=== PATIENT | female | born 1940 | race Caucasian/White ===

== ENCOUNTER 2016-07-27 11:39 | Emergency (ER) | payer OTHER ==
[~2016-07-27] VITALS: Ht 152.4 cm; Wt 99.3 kg
[2016-07-27 11:49] VITALS: BP 159/75; PULSE 118; RESP 18; TEMP 99; O2SAT 92
[2016-07-27] MEDS ORDERED: GLIP10TA6 PO (12:23)
[2016-07-27] MEDS ORDERED: B-COTAB41 PO (12:23)
[2016-07-27] MEDS ORDERED: FAMO20TA2 PO (12:23)
[2016-07-27] MEDS ORDERED: METH2.5T PO (12:23)
[2016-07-27] MEDS ORDERED: FOLI400T PO (12:23)
[2016-07-27] MEDS ORDERED: LEVO.125 PO (12:23)
[2016-07-27] MEDS ORDERED: LISI10TA3 PO (12:23)
[2016-07-27] MEDS ORDERED: SITA1TAB2 PO (12:23)
[2016-07-27] MEDS ORDERED: MULT1TAB84 PO (12:23)
[2016-07-27] MEDS ORDERED: PRED2.5T PO (12:23)
[2016-07-27] MEDS ORDERED: CALC1CAP11 PO (12:23)
[2016-07-27] MEDS ORDERED: HYDR12.57 PO (12:23)
[2016-07-27] MEDS ORDERED: FLUV1TAB3 PO (12:23)
[2016-07-27] MEDS ORDERED: CHOL5000 PO (12:23)
[2016-07-27] MEDS ORDERED: LEVA500T PO (12:46)
[2016-07-27] MEDS ORDERED: CHERSYP2 PO (12:46)
[2016-07-27] MEDS ORDERED: PRED10PA PO (12:46)
--- NOTE | 2016-07-27 12:47 | PD ---
HPI Chief Complaint: Cold / Flu Symptoms Time Seen by Provider: 12:27 Travel History International Travel<30 days: No Contact w/Intl Traveler<30days: No Traveled to known affect area: No History of Present Illness HPI Patient presents with complaints of sinus pain and pressure with postnasal drip and cough. Denies nausea vomiting diarrhea fever. She is taking Claritin daily. States symptoms started approximately 2 months ago. She was evaluated a month ago and started on doxycycline and oral steroid without complete resolution of her symptoms. She states she did get better. Denies any new rashes. No tobacco exposure. No history of COPD. States her symptoms gradually gotten worse since she completed the antibiotics. PFSH Past Medical History Hx Anticoagulant Therapy: No Arthritis: Yes Cardiovascular Problems: Yes (HTN) High Cholesterol: Yes Diabetes: Yes Patient Takes Glucophage: Yes (JANUVIA) Hypertension: Yes Immunizations Current: Yes Thyroid Disease: Yes Tetanus Vaccination: Unknown Influenza Vaccination: No ?: Not Menopausal: Yes Past Surgical History Hysterectomy: No Joint Replacement: Yes (LEFT KNEE X 2, RIGHT KNEE X 1) Social History Alcohol Use: Yes (SOCIALLY) Tobacco Use: No (NEVER) Substance Use: No Allergies-Medications (Allergen,Severity, Reaction): Coded Allergies: No Known Allergies (Unverified , 07/27/16) Reported Meds & Prescriptions Reported Meds & Active Scripts Active Reported Famotidine 20 Mg Tab 20 Mg PO BID PRN Methotrexate 2.5 Mg Tab 4 Tab PO SUMO Prednisone 2.5 Mg Tab 2.5 Mg PO HS Hydrochlorothiazide 12.5 Mg Cap 12.5 Mg PO EVERY OTHER DAY Folic Acid 400 Mcg Tab 400 Mcg PO HS Fluvastatin ER (Fluvastatin Sodium) 80 Mg Javan 80 Mg PO HS Lisinopril 10 Mg Tab 10 Mg PO HS Multivitamin Adults (Multiple Vitamins W/ Minerals) 1 Tab 1 Tab PO HS Vitamin D3 (Cholecalciferol) 5,000 Unit Cap 5,000 Units PO AC LUNCH Calcium 250 Mg Cap 250 Mg PO AC LUNCH Vitamin B-Complex (B-Complex Vitamins) 1 Tab 1 Tab PO AC LUNCH Januvia (Sitagliptin Phosphate) 100 Mg Tab 100 Mg PO DAILY Glipizide 10 Mg Tab 10 Mg PO DAILY Take 30 minutes before a meal Synthroid (Levothyroxine Sodium) 125 Mcg Tab 125 Mcg PO DAILY Review of Systems General / Constitutional: No: Fever Eyes: No: Visual changes HENT: Positive: Sore Throat, Rhinorrhea, No: Headaches Cardiovascular: No: Chest Pain or Discomfort Respiratory: Positive: Cough, No: Shortness of Breath Gastrointestinal: No: Abdominal Pain Genitourinary: No: Dysuria Musculoskeletal: No: Pain Skin: No Rash Neurologic: No: Weakness Psychiatric: No: Depression Endocrine: No: Polydipsia Hematologic/Lymphatic: No: Easy Bruising Physical Exam Narrative GENERAL: Well-nourished, well-developed patient. SKIN: Warm and dry. HEAD: Normocephalic. EYES: No scleral icterus. No injection or drainage. Nares erythematous and boggy tenderness over bilateral maxillary sinuses Throat erythematous no adenopathy positive postnasal drip NECK: Supple, trachea midline. No JVD or lymphadenopathy. CARDIOVASCULAR: Regular rate and rhythm without murmurs, gallops, or rubs. RESPIRATORY: Breath sounds equal bilaterally. No accessory muscle use. GASTROINTESTINAL: Abdomen soft, non-tender, nondistended. MUSCULOSKELETAL: No cyanosis, or edema. BACK: Nontender without obvious deformity. No CVA tenderness. Data Data Last Documented VS Vital Signs Date Time Temp Pulse Resp B/P Pulse Ox O2 Delivery O2 Flow Rate FiO2 07/27/16 12:09 100 18 96 Room Air 07/27/16 11:49 99.0 159/75 MDM Medical Decision Making Medical Screen Exam Complete: Yes Emergency Medical Condition: Yes Differential Diagnosis Sinusitis, pharyngitis, viral syndrome allergies Narrative Course Assessment and plan discussed with patient and at bedside Diagnosis Primary Impression: Sinusitis Qualified Code: J32.0 - Chronic maxillary sinusitis Patient Instructions: General Instructions Additional Instructions: Encouraged to continue [id number] histamine without pseudoephedrine, encourage frequent handwashing, encourage vitamin C and zinc to boost immune system, encouraged regular nasal irrigation with a [facility] pot Med/Other Pt SpecificInfo: Prescription(s) given Scripts Prednisone (21) 10 mg tab Dose Pack 10 Mg Pack10 Mg PO DIRECTED #1 DSPK Ref 0 Prov:Javier Timmons MD 07/27/16 Guaifenesin-Codeine Liq (Cheratussin AC Liq)100-10 Mg/5 Ml Syrp10 Ml PO Q4H PRN (COUGH AND COLD SYMPTOMS) #120 ML Ref 0 Do not exceed 6 doses/24 hrs. Prov:Javier Timmons MD 07/27/16 Levofloxacin (Levaquin)500 Mg Vxf410 Mg PO DAILY #14 TAB Ref 0 Prov:Javier Timmons MD 07/27/16 Disposition: 01 DISCHARGE HOME Condition: Good Javier Timmons MD Jul 27, 2016 12:47
[2016-07-27 13:17] VITALS: BP 143/76
== END 2016-07-27 13:18 | disposition home or self-care (01) ==
LOC: PHED 11:39
DX: J32.0 Chronic maxillary sinusitis (principal); R05 Cough; I10 Essential (primary) hypertension; E78.00 Pure hypercholesterolemia, unspecified; E11.9 Type 2 diabetes mellitus without complications; E07.9 Disorder of thyroid, unspecified; Z79.84 Long term (current) use of oral hypoglycemic drugs; Z87.39 Personal history of other diseases of the musculoskeletal system and connective tissue
CPT/HCPCS: 99283

== ENCOUNTER 2016-09-17 10:26 | Emergency (ER) | payer OTHER ==
[~2016-09-17] VITALS: Ht 157.5 cm; Wt 99.0 kg
[~2016-09-17 10:26] MED LIST: B-COTAB41 PO; CALC1CAP11 PO; CHERSYP2 PO; CHOL5000 PO; FAMO20TA2 PO; FLUV1TAB3 PO; FOLI400T PO; GLIP10TA6 PO; HYDR12.57 PO; LEVA500T PO; LEVO.125 PO; LISI10TA3 PO; METH2.5T PO; MULT1TAB84 PO; PRED10PA PO; PRED2.5T PO; SITA1TAB2 PO
[2016-09-17 10:38] VITALS: BP 146/79; PULSE 79; RESP 16; TEMP 97.8; O2SAT 91
[2016-09-17] MEDS ORDERED: methylPREDNISolone SOD SUCC 125 MG/2 ML VIAL IVP ONE (11:00)
[2016-09-17] MEDS ORDERED: SODIUM CHLORIDE 0.9% FLUSH 5 ML FLUSH IVF PRN (11:00)
--- NOTE | 2016-09-17 11:00 | PD ---
HPI Chief Complaint: Cold / Flu Symptoms Time Seen by Provider: 10:48 Travel History International Travel<30 days: No Contact w/Intl Traveler<30days: No Traveled to known affect area: No History of Present Illness HPI This is a 75-year-old female with a history of arthritis on methotrexate and chronic prednisone who presents to the emergency department with 3 days of increasing cough productive with clear sputum, constant, worse in the evenings, worse with exertion. She has a history of recurrent sinusitis. She had very similar symptoms in July at which time she was started on a prednisone taper and antibiotics and her symptoms improved. At that time she also started Claritin for possible allergies and she says that she thinks that is helped her. She says she's never smoked. She says she had an echo of her heart to evaluate a heart murmur prior to coming to [place] last year which was normal. PFSH Past Medical History Hx Anticoagulant Therapy: No Arthritis: Yes Cardiovascular Problems: Yes (HTN) High Cholesterol: Yes Diabetes: Yes Patient Takes Glucophage: No Hypertension: Yes Immunizations Current: Yes Thyroid Disease: Yes Menopausal: Yes Past Surgical History Hysterectomy: No Joint Replacement: Yes (LEFT KNEE X 2, RIGHT KNEE X 1) Social History Alcohol Use: Yes (SOCIALLY) Tobacco Use: No (NEVER) Substance Use: No Allergies-Medications (Allergen,Severity, Reaction): Coded Allergies: No Known Allergies (Unverified , 09/17/16) Reported Meds & Prescriptions Reported Meds & Active Scripts Active Prednisone (21) 10 mg tab Dose Pack (Prednisone) 10 Mg Pack 10 Mg PO DIRECTED Cheratussin AC Liq (Guaifenesin-Codeine Liq) 100-10 Mg/5 Ml Syrp 10 Ml PO Q4H PRN Do not exceed 6 doses/24 hrs. Levaquin (Levofloxacin) 500 Mg Tab 500 Mg PO DAILY Reported Famotidine 20 Mg Tab 20 Mg PO BID PRN Methotrexate 2.5 Mg Tab 4 Tab PO SUMO Prednisone 2.5 Mg Tab 2.5 Mg PO HS Hydrochlorothiazide 12.5 Mg Cap 12.5 Mg PO EVERY OTHER DAY Folic Acid 400 Mcg Tab 400 Mcg PO HS Fluvastatin ER (Fluvastatin Sodium) 80 Mg Javan 80 Mg PO HS Lisinopril 10 Mg Tab 10 Mg PO HS Multivitamin Adults (Multiple Vitamins W/ Minerals) 1 Tab 1 Tab PO HS Vitamin D3 (Cholecalciferol) 5,000 Unit Cap 5,000 Units PO AC LUNCH Calcium 250 Mg Cap 250 Mg PO AC LUNCH Vitamin B-Complex (B-Complex Vitamins) 1 Tab 1 Tab PO AC LUNCH Januvia (Sitagliptin Phosphate) 100 Mg Tab 100 Mg PO DAILY Glipizide 10 Mg Tab 10 Mg PO DAILY Take 30 minutes before a meal Synthroid (Levothyroxine Sodium) 125 Mcg Tab 125 Mcg PO DAILY Review of Systems Except as stated in HPI: all other systems reviewed are Neg Physical Exam Narrative GENERAL:Well appearing, no acute distress SKIN: Warm and dry. HEAD: Atraumatic. Normocephalic. EYES: Pupils equal and round. No injection or drainage. ENT: Moist mucous membranes NECK: Trachea midline. CARDIOVASCULAR: Regular rate and rhythm. 3/6 systolic murmur over the right upper sternal border. 1+ pitting edema in the bilateral lower extremities. RESPIRATORY: Clear to auscultation. Breath sounds equal bilaterally. Expiratory wheeze with coughing. GASTROINTESTINAL: Abdomen soft, non-tender, nondistended. MUSCULOSKELETAL: No obvious deformities. NEUROLOGICAL: Awake and alert. No obvious cranial nerve deficits. Moving all extremities. PSYCHIATRIC: Appropriate mood and affect; insight and judgment normal. Data Data Last Documented VS Vital Signs Date Time Temp Pulse Resp B/P Pulse Ox O2 Delivery O2 Flow Rate FiO2 09/17/16 11:17 100 Aerosol Mask 09/17/16 10:38 97.8 79 16 146/79 Orders Complete Blood Count With Diff (09/17/16 10:58) Comprehensive Metabolic Panel (09/17/16 10:58) Chest, Single Ap (09/17/16 10:58) Ecg Monitoring (09/17/16 10:58) Iv Access Insert/Monitor (09/17/16 10:58) Oximetry (09/17/16 10:58) Oxygen Administration (09/17/16 10:58) Methylprednisolone So Succ Inj (Solumedr (09/17/16 11:00) Albuterol-Ipratropium Neb (Duoneb Neb) (09/17/16 11:00) Sodium Chloride 0.9% Flush (Ns Flush) (09/17/16 11:00) B-Type Natriuretic Peptide (09/17/16 10:58) Labs Laboratory Tests Test 09/17/16 11:12 White Blood Count 7.5 TH/MM3 Red Blood Count 3.49 MIL/MM3 Hemoglobin 11.9 GM/DL Hematocrit 35.7 % Mean Corpuscular Volume 102.5 FL Mean Corpuscular Hemoglobin 34.0 PG Mean Corpuscular Hemoglobin 33.2 % Concent Red Cell Distribution Width 15.3 % Platelet Count 212 TH/MM3 Mean Platelet Volume 8.0 FL Neutrophils (%) (Auto) 73.0 % Lymphocytes (%) (Auto) 14.1 % Monocytes (%) (Auto) 6.7 % Eosinophils (%) (Auto) 5.5 % Basophils (%) (Auto) 0.7 % Neutrophils # (Auto) 5.4 TH/MM3 Lymphocytes # (Auto) 1.1 TH/MM3 Monocytes # (Auto) 0.5 TH/MM3 Eosinophils # (Auto) 0.4 TH/MM3 Basophils # (Auto) 0.1 TH/MM3 CBC Comment DIFF FINAL Differential Comment Sodium Level 140 MEQ/L Potassium Level 4.3 MEQ/L Chloride Level 100 MEQ/L Carbon Dioxide Level 30.9 MEQ/L Anion Gap 9 MEQ/L Blood Urea Nitrogen 12 MG/DL Creatinine 0.76 MG/DL Estimat Glomerular Filtration 74 ML/MIN Rate Random Glucose 183 MG/DL Calcium Level 8.7 MG/DL Total Bilirubin 0.5 MG/DL Aspartate Amino Transf 66 U/L (AST/SGOT) Alanine Aminotransferase 74 U/L (ALT/SGPT) Alkaline Phosphatase 70 U/L B-Type Natriuretic Peptide 30 PG/ML Total Protein 6.7 GM/DL Albumin 3.4 GM/DL MDM Medical Decision Making Medical Screen Exam Complete: Yes Emergency Medical Condition: Yes Interpretation(s) No leukocytosis Electrolytes within normal limits Mild transaminitis BNP is normal Chest x-ray: No acute process Differential Diagnosis Pneumonia, bronchitis, COPD exacerbation, congestive heart failure Narrative Course This is a 75-year-old female who presents to the emergency department with a productive cough this been present for 3 days. She does have an expiratory wheeze on exam. She was placed on a monitor and an IV was established. She was given IV Solu-Medrol and duonebs and her symptoms improved. I think the patient would benefit from outpatient pulse steroids as well as azithromycin in the setting of acute bronchitis. Patient can follow up with her primary care physician as an outpatient. Diagnosis Primary Impression: Acute bronchitis Qualified Code: J20.9 - Acute bronchitis, unspecified organism Patient Instructions: General Instructions Additional Instructions: If you develop severe chest pain, shortness of breath, sweating, lightheadedness , dizziness or difficulty breathing return to the emergency department immediately. Followup with your primary care physician in 2-3 days if your symptoms are not resolved. Med/Other Pt SpecificInfo: Prescription(s) given Scripts Azithromycin 250 Mg [id number] Mg PO DIRECTED #6 TAB Take 2 tabs (500 mg) on day 1 then 1 tab daily x 4 days. Prov:Crissy Durham MD 09/17/16 Prednisone 20 Mg Tab40 Mg PO DAILY 4 Days Prov:Crissy Durham MD 09/17/16 Disposition: 01 DISCHARGE HOME Condition: Stable Crissy Durham MD Sep 17, 2016 11:00
[2016-09-17] MEDS: RESP: ALBUTEROL 2.5 MG/IPRATROPIUM 0.5 MG NEB (SCH) INH (11:08)
[2016-09-17 11:17] VITALS: O2SAT 100
[2016-09-17 11:23] LABS: AUTOMATED NEUTROPHIL # 5.4 TH/MM3 (1.8-7.7); BASOPHIL # 0.1 TH/MM3 (0-0.2); BASOPHIL % 0.7 % (0.0-2.0); EOSINOPHIL # 0.4 TH/MM3 (0-0.4); EOSINOPHIL % 5.5 % (0.0-4.0); HEMATOCRIT 35.7 % (35.0-46.0); HEMO FLAGS DIFF FINAL; LYMPH % 14.1 % (9.0-44.0); LYMPHOCYTE # 1.1 TH/MM3 (1.0-4.8); MEAN CELL VOLUME 102.5 FL (80.0-100.0); MEAN CORPUSCULAR HGB CONC 33.2 % (32.0-36.0); MONO % 6.7 % (0.0-8.0); PLATELET COUNT 212 TH/MM3 (150-450); RED BLOOD COUNT 3.49 MIL/MM3 (4.00-5.30); RED CELL DISTRIBUTION WIDTH 15.3 % (11.6-17.2); WHITE BLOOD COUNT 7.5 TH/MM3 (4.0-11.0)
[2016-09-17 11:33] LABS: CHLORIDE 100 MEQ/L (98-107); POTASSIUM 4.3 MEQ/L (3.5-5.1); SODIUM (NA) 140 MEQ/L (136-145)
[2016-09-17 11:37] LABS: ANION GAP 9 MEQ/L (5-15); BICARBONATE 30.9 MEQ/L (21.0-32.0); BLOOD UREA NITROGEN 12 MG/DL (7-18)
--- NOTE | 2016-09-17 11:39 | RADHPO ---
EXAM DATE/TIME: 09/17/2016 11:05 [facility] COMPARISON: No previous studies available for comparison. INDICATIONS : Cough and congestion MEDICAL HISTORY : None. SURGICAL HISTORY : None. ENCOUNTER: Initial ACUITY: 3 days PAIN SCORE: 4/10 LOCATION: Bilateral chest FINDINGS: A single view of the chest demonstrates the lungs to be symmetrically aerated without evidence of mas s, infiltrate or effusion. The cardiomediastinal contours are unremarkable. Osseous structures are intact. CONCLUSION: No acute disease. Azeem Vazquez MD on September 17, 2016 at 11:38 Board Certified Radiologist. This report was verified electronically.
[2016-09-17 11:40] LABS: AST (GOT) 66 U/L (15-37)
[2016-09-17 11:41] LABS: ALT (GPT) 74 U/L (10-53); GLOMERULAR FILTRATION RATE 74 ML/MIN (>89)
[2016-09-17 11:43] LABS: ALKALINE PHOSPHATASE 70 U/L (45-117)
[2016-09-17 11:46] LABS: TOTAL BILIRUBIN ADULT 0.5 MG/DL (0.2-1.0)
[2016-09-17] MEDS ORDERED: AZIT250T3 PO (12:00)
[2016-09-17] MEDS ORDERED: PRED20 PO (12:00)
== END 2016-09-17 12:16 | disposition home or self-care (01) ==
LOC: PHED 10:26
DX: J20.9 Acute bronchitis, unspecified (principal); I10 Essential (primary) hypertension; E78.00 Pure hypercholesterolemia, unspecified; E11.9 Type 2 diabetes mellitus without complications
CPT/HCPCS: 71010; 80053; 83880; 85025; 94640; 94664; 96374; 99283; J2930

== ENCOUNTER 2017-07-24 07:43 | Emergency (ER) | payer MEDICARE, OTHER ==
[~2017-07-24] VITALS: Ht 152.4 cm; Wt 96.0 kg
[~2017-07-24 07:43] MED LIST changes: +AZIT250T3 PO; +PRED20 PO
[2017-07-24 07:45] VITALS: BP 188/86; PULSE 90; RESP 18; TEMP 97.4; O2SAT 95
[2017-07-24] MEDS ORDERED: ATOR40TA16 PO (08:06)
[2017-07-24] MEDS ORDERED: CELE200C PO (08:06)
[2017-07-24] MEDS ORDERED: MOME17I EACH NARE (08:06)
[2017-07-24] MEDS ORDERED: VENTAER INH (08:06)
[2017-07-24] MEDS ORDERED: GLYC1AER INH (08:06)
[2017-07-24] MEDS ORDERED: RESP: ALBUTEROL 2.5 MG/IPRATROPIUM 0.5 MG NEB (SCH) NEB ONE (08:15)
--- NOTE | 2017-07-24 08:19 | PD ---
HPI Chief Complaint: Cold / Flu Symptoms Time Seen by Provider: 08:10 Travel History International Travel<30 days: No Contact w/Intl Traveler<30days: No Traveled to known affect area: No History of Present Illness HPI 76 y/o female presents with cough over the past couple of days. She states she has been trying to use her Ventolin inhaler and her other maintenance inhaler without improvement. She denies any fever, congestion or other concurrent complaints. She feels worse when she moves around. She denies other modifying factors. Quality is nonproductive. Severity is frequent per patient. Duration is couple of days. PFSH Past Medical History Hx Anticoagulant Therapy: No Arthritis: Yes Cardiovascular Problems: Yes (HTN) High Cholesterol: Yes Diabetes: Yes Patient Takes Glucophage: No Hypertension: Yes Immunizations Current: Yes Thyroid Disease: Yes Influenza Vaccination: Yes ?: Not Menopausal: Yes Past Surgical History Hysterectomy: No Joint Replacement: Yes (LEFT KNEE X 2, RIGHT KNEE X 1) Social History Alcohol Use: Yes (SOCIALLY) Tobacco Use: No (NEVER) Substance Use: No Allergies-Medications (Allergen,Severity, Reaction): Coded Allergies: amoxicillin (Verified Adverse Reaction, Severe, gi upset, 07/24/17) clavulanic acid (Verified Adverse Reaction, Severe, gi upset, 07/24/17) Reported Meds & Prescriptions Reported Meds & Active Scripts Active Tessalon Perles (Benzonatate) 100 Mg Cap 100 Mg PO TID PRN Prednisone 50 Mg Tab 50 Mg PO DAILY 5 Days Cheratussin AC Liq (Guaifenesin-Codeine Liq) 100-10 Mg/5 Ml Syrp 10 Ml PO Q4H PRN Do not exceed 6 doses/24 hrs. Reported Atorvastatin (Atorvastatin Calcium) 40 Mg Tab 40 Mg PO HS Ventolin Hfa 18 GM Inh (Albuterol Sulfate) 90 Mcg/Act Aer 2 Puff INH Q4H PRN Bevespi Aerosphere 9-4.8 Mcg/Act (Glycopyrrolate-Formoterol Fuma) 9 Mcg-4.8 Mcg Aer 2 Puff INH BID Nasonex Nasal [place] (Mometasone Furoate) 50 Mcg/Act Naspr 2 [place] EACH NARE DAILY Celebrex (Celecoxib) 200 Mg Cap 200 Mg PO DAILY Famotidine 20 Mg Tab 20 Mg PO BID PRN Methotrexate 2.5 Mg Tab 4 Tab PO SUMO Prednisone 2.5 Mg Tab 2.5 Mg PO HS Hydrochlorothiazide 12.5 Mg Cap 12.5 Mg PO EVERY OTHER DAY Folic Acid 400 Mcg Tab 400 Mcg PO HS Lisinopril 10 Mg Tab 10 Mg PO HS Multivitamin Adults (Multiple Vitamins W/ Minerals) 1 Tab 1 Tab PO HS Vitamin D3 (Cholecalciferol) 5,000 Unit Cap 5,000 Units PO AC LUNCH Calcium 250 Mg Cap 250 Mg PO AC LUNCH Vitamin B-Complex (B-Complex Vitamins) 1 Tab 1 Tab PO AC LUNCH Januvia (Sitagliptin Phosphate) 100 Mg Tab 100 Mg PO DAILY Glipizide 10 Mg Tab 10 Mg PO DAILY Take 30 minutes before a meal Synthroid (Levothyroxine Sodium) 125 Mcg Tab 125 Mcg PO DAILY Review of Systems Except as stated in HPI: all other systems reviewed are Neg Physical Exam Narrative GENERAL: Well-nourished, well-developed patient. Well-appearing SKIN: Warm and dry. HEAD: Normocephalic and atraumatic. EYES: No injection or drainage. ENT: No nasal drainage noted. NECK: Supple, trachea midline. CARDIOVASCULAR: Regular rate and rhythm RESPIRATORY: Breath sounds equal bilaterally. No accessory muscle use. GASTROINTESTINAL: Abdomen soft, non-tender, nondistended. EXTREMITIES: No edema. NEUROLOGICAL: Awake and alert. Motor and sensory grossly within normal limits. Normal speech. Data Data Last Documented VS Vital Signs Date Time Temp Pulse Resp B/P (MAP) Pulse Ox O2 Delivery O2 Flow Rate FiO2 07/24/17 08:07 Room Air 07/24/17 07:45 97.4 90 18 188/86 (120) 95 Orders Orders Chest, Pa & Lat (07/24/17 ) Albuterol-Ipratropium Neb (Duoneb Neb) (07/24/17 08:15) Influenzae A/B Antigen (07/24/17 08:19) Ed Discharge Order (07/24/17 09:04) MDM Medical Decision Making Medical Screen Exam Complete: Yes Emergency Medical Condition: Yes Medical Record Reviewed: Yes (past history confirmed) Interpretation(s) Last 24 hours Impressions Chest X-Ray 07/24/17 0000 Signed Impressions: Service Date/Time: Monday, July 24, 2017 08:14 - CONCLUSION: No acute disease Azeem Reyes MD flu is negative Differential Diagnosis URI, pneumonia, asthma exacerbation Narrative Course Will check chest x-ray and flu test and dose with DuoNeb and reevaluate Patient denies any new complaints and states that they are feeling better. Patient happy with care, ctab, all questions answered. Patient knows that follow up is incumbent on them and to return to the emergency room immediately if new or worsening symptoms develop. Patient given strict return precautions, vitals reviewed and are normal, agrees to further workup as an outpatient. Diagnosis Primary Impression: Asthma exacerbation Qualified Codes: J45.901 - Unspecified asthma with (acute) exacerbation Patient Instructions: General Instructions Additional Instructions: return as needed, follow with primary thursday, albuterol every 4 hours Med/Other Pt SpecificInfo: Prescription(s) given Scripts Benzonatate (Tessalon Perles) 100 Mg Cap 100 MG PO TID Y for COUGH, #15 CAP 0 Refills Prov: Rosetta Baker MD 07/24/17 Prednisone (Prednisone) 50 Mg Tab 50 MG PO DAILY for 5 Days, #5 TAB 0 Refills Prov: Rosetta Baker MD 07/24/17 Disposition: 01 DISCHARGE HOME Condition: Stable Rosetta Baker MD Jul 24, 2017 08:18
--- NOTE | 2017-07-24 08:36 | RADRPT ---
EXAM DATE/TIME: 07/24/2017 08:14 [facility] COMPARISON: CHEST SINGLE AP, September 17, 2016, 11:05. INDICATIONS : Cough, congestion. MEDICAL HISTORY : Asthma SURGICAL HISTORY : None. ENCOUNTER: Initial ACUITY: 3 days PAIN SCORE: 0/10 LOCATION: Bilateral chest FINDINGS: Stable asymmetric elevation of the right diaphragm. No evidence of infiltrate or effusion. Cardiac co ntours are stable accounting for differences in technique and projection. Degenerative changes noted in the spine and shoulders. CONCLUSION: No acute disease Azeem Reyes MD on July 24, 2017 at 8:33 Board Certified Radiologist. This report was verified electronically.
[2017-07-24] MEDS ORDERED: PRED50 PO (09:07)
[2017-07-24] MEDS ORDERED: BENZ100 PO (09:07)
[2017-07-26] MEDS ORDERED: GUAISYP4 PO (06:34)
[2017-07-26] MEDS ORDERED: DOXY100C PO (06:34)
== END 2017-07-24 09:23 | disposition home or self-care (01) ==
LOC: PHED 07:43
DX: J45.901 Unspecified asthma with (acute) exacerbation (principal); I10 Essential (primary) hypertension; E11.9 Type 2 diabetes mellitus without complications
CPT/HCPCS: 71046; 87804; 94664; 99284

== ENCOUNTER 2017-07-26 05:46 | Emergency (ER) | payer MEDICARE | END 2017-07-26 06:49 | disposition home or self-care (01) | LOC: PHED 05:46 | DX: R05 Cough (principal); I10 Essential (primary) hypertension; E11.9 Type 2 diabetes mellitus without complications; Z79.84 Long term (current) use of oral hypoglycemic drugs; Z88.0 Allergy status to penicillin | CPT/HCPCS: 99284 ==

== ENCOUNTER 2017-08-18 10:28 | Emergency (ER) | payer MEDICARE ==
[~2017-08-18] VITALS: Ht 152.4 cm; Wt 97.7 kg
[~2017-08-18 10:28] MED LIST changes: +ATOR40TA16 PO; -AZIT250T3 PO; +BENZ100 PO; -CALC1CAP11 PO; +CELE200C PO; +DOXY100C PO; -FLUV1TAB3 PO; +GLYC1AER INH; +GUAISYP4 PO; -LEVA500T PO; +MOME17I EACH NARE; -MULT1TAB84 PO; -PRED10PA PO; -PRED2.5T PO; -PRED20 PO; +PRED50 PO; +VENTAER INH
[2017-08-18 10:41] VITALS: BP 138/65; PULSE 105; RESP 16; TEMP 98.1; O2SAT 94
[2017-08-18] MEDS ORDERED: PRED2.5T PO (11:06)
--- NOTE | 2017-08-18 11:08 | PD ---
HPI Chief Complaint: Injury Time Seen by Provider: 10:48 Travel History International Travel<30 days: No Contact w/Intl Traveler<30days: No Traveled to known affect area: No History of Present Illness HPI Patient is a 76-year-old female who comes in after a trip and fall, complaining of left fifth finger pain. She says she tripped on a rug last night and she caught herself with her left hand. She says it hurts to straighten out her fifth finger. She says she had some pain to her right wrist, but that improved with some pain lotion that she put on it. She denies hitting her head or passing out. She says she was in her normal state of health prior to the fall. She took some Tylenol earlier that helped with the pain. Movement makes the pain worse. PFSH Past Medical History Hx Anticoagulant Therapy: No Arthritis: Yes Cardiovascular Problems: Yes (HTN) High Cholesterol: Yes Diabetes: Yes Patient Takes Glucophage: No Diminished Hearing: No Hypertension: Yes Immunizations Current: Yes Thyroid Disease: Yes Tetanus Vaccination: Unknown ?: Not Menopausal: Yes Past Surgical History Hysterectomy: No Joint Replacement: Yes (LEFT KNEE X 2, RIGHT KNEE X 1) Social History Alcohol Use: Yes (SOCIALLY) Tobacco Use: No (NEVER) Substance Use: No Allergies-Medications (Allergen,Severity, Reaction): Coded Allergies: amoxicillin (Verified Adverse Reaction, Severe, gi upset, 08/18/17) clavulanic acid (Verified Adverse Reaction, Severe, gi upset, 08/18/17) Reported Meds & Prescriptions Reported Meds & Active Scripts Active Reported Prednisone 2.5 Mg Tab 2.5 Mg PO DAILY Atorvastatin (Atorvastatin Calcium) 40 Mg Tab 40 Mg PO HS Ventolin Hfa 18 GM Inh (Albuterol Sulfate) 90 Mcg/Act Aer 2 Puff INH Q4H PRN Bevespi Aerosphere 9-4.8 Mcg/Act (Glycopyrrolate-Formoterol Fuma) 9 Mcg-4.8 Mcg Aer 2 Puff INH BID Nasonex Nasal [place] (Mometasone Furoate) 50 Mcg/Act Naspr 2 Vera EACH NARE DAILY Celebrex (Celecoxib) 200 Mg Cap 200 Mg PO DAILY Methotrexate 2.5 Mg Tab 4 Tab PO SUMO Hydrochlorothiazide 12.5 Mg Cap 12.5 Mg PO EVERY OTHER DAY Folic Acid 400 Mcg Tab 400 Mcg PO HS Lisinopril 10 Mg Tab 10 Mg PO HS Vitamin D3 (Cholecalciferol) 5,000 Unit Cap 5,000 Units PO AC LUNCH Vitamin B-Complex (B-Complex Vitamins) 1 Tab 1 Tab PO AC LUNCH Januvia (Sitagliptin Phosphate) 100 Mg Tab 100 Mg PO DAILY Glipizide 10 Mg Tab 10 Mg PO DAILY Take 30 minutes before a meal Synthroid (Levothyroxine Sodium) 125 Mcg Tab 125 Mcg PO DAILY Review of Systems General / Constitutional: No: Fever, Chills HENT: No: Headaches, Lightheadedness Cardiovascular: No: Chest Pain or Discomfort, Palpitations Respiratory: No: Shortness of Breath Musculoskeletal: Positive: Pain, No: Edema Skin: No Rash, No Change in Pigmentation Neurologic: No: Weakness, Dizziness, Syncope Physical Exam Narrative GENERAL: Awake and alert, in no acute distress. SKIN: Focused skin assessment warm/dry. No wounds or signs of infection. HEAD: Atraumatic. Normocephalic. EYES: Pupils equal and round. No injection or drainage. ENT: Mucous membranes pink and moist. NECK: Trachea midline. No JVD. No cervical spine tenderness. CARDIOVASCULAR: Regular rate and rhythm. No murmur appreciated. RESPIRATORY: No accessory muscle use. Clear to auscultation. Breath sounds equal bilaterally. MUSCULOSKELETAL: No obvious deformities. No clubbing. No cyanosis. No edema. Tender to palpation of the DIP joint of the left fifth finger. There is no tenderness to the thoracic or lumbar spine. No tenderness to the shoulders, humerus, elbows, wrists. Radial pulses intact. Patient able to walk with her walker without difficulty. NEUROLOGICAL: Awake and alert. No obvious cranial nerve deficits. Motor grossly within normal limits. Normal speech. Data Data Last Documented VS Vital Signs Date Time Temp Pulse Resp B/P (MAP) Pulse Ox O2 Delivery O2 Flow Rate FiO2 08/18/17 10:41 98.1 105 16 138/65 (89) 94 Orders Orders Hand, Complete ([id number]) (08/18/17 ) [facility] Medical Decision Making Medical Screen Exam Complete: Yes Emergency Medical Condition: Yes Medical Record Reviewed: Yes Differential Diagnosis Finger fracture versus ligamentous injury versus sprain Narrative Course Patient is a 76-year-old female who comes in complaining of pain to her left fifth finger after fall. Exam shows tenderness to the DIP. X-ray performed shows no fracture, but evidence of mallet finger. Patient placed in a splint. She is advised to wear this when for the next 6 weeks or until she sees a hand surgeon. She did not want pain medicine at this time. Advised to take Tylenol as needed at home for pain. Advised to return to the ED as needed for any worsening symptoms. Diagnosis Primary Impression: Mallet finger Qualified Codes: M20.012 - Mallet finger of left finger(s) Referrals: Sera Salinas MD call for appointment Patient Instructions: Finger Sprain (ED), General Instructions Additional Instructions: Follow-up with a hand surgeon. Wear her splint for the next 6 weeks, or until you see the hand surgeon. Take Tylenol as needed for pain. Return to the ED as needed for any worsening symptoms. Disposition: 01 DISCHARGE HOME Condition: Stable Alisha Rios MD Aug 18, 2017 11:08
--- NOTE | 2017-08-18 11:21 | RADRPT ---
EXAM DATE/TIME: 08/18/2017 11:04 [place] COMPARISON: CHEST PA & LAT, July 24, 2017, 8:14. INDICATIONS : Left pinky deformity since falling last night. MEDICAL HISTORY : None. SURGICAL HISTORY : None. ENCOUNTER: Initial ACUITY: 1 day PAIN SCORE: 4/10 LOCATION: Left medial hand. FINDINGS: The examination demonstrates arthritic changes in the radiocarpal joint and the carpal/metacarpal aimee nt at the base of the palm. There is an old ununited ulnar styloid fracture. The exam demonstrates arthritic changes within the DIP joints of the first through fourth digits. There is deformity of the DIP joint of the fifth digit. There is no evidence of fracture. Exam would suggest mallet finger deformity. CONCLUSION: 1. 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 No definite fracture seen. 2. Advanced arthritic changes as above. Mic Adamson MD on August 18, 2017 at 11:16 Board Certified Radiologist. This report was verified electronically.
== END 2017-08-18 12:36 | disposition home or self-care (01) ==
LOC: PHEFT 10:28
DX: M20.012 Mallet finger of left finger(s) (principal); I10 Essential (primary) hypertension; E78.00 Pure hypercholesterolemia, unspecified; E11.9 Type 2 diabetes mellitus without complications; E07.9 Disorder of thyroid, unspecified; M19.90 Unspecified osteoarthritis, unspecified site; Z79.84 Long term (current) use of oral hypoglycemic drugs
CPT/HCPCS: 73130; 99283